=== PATIENT | male | born 1985 | race Caucasian/White ===

== ENCOUNTER 2018-06-18 07:03 | Emergency (ER) | payer OTHER, BC ==
[~2018-06-18] VITALS: Ht 165.1 cm; Wt 70.3 kg
[2018-06-18 07:14] VITALS: BP_SYST 124
[2018-06-18] MEDS ORDERED: LIDOCAINE VISCOUS 2%, 15 ML UDC ONE (07:58)
[2018-06-18] MEDS ORDERED: LIDOCAINE VISCOUS 2%, 15 ML UDC MM ONE (08:00)
[2018-06-18 08:35] VITALS: BP_SYST 125
== END 2018-06-18 08:35 | disposition home or self-care (01) ==
LOC: SED 07:03
DX: J95.830 Postprocedural hemorrhage of a respiratory system organ or structure following a respiratory system procedure (principal); Z90.49 Acquired absence of other specified parts of digestive tract; Z88.1 Allergy status to other antibiotic agents; Z88.2 Allergy status to sulfonamides; Z88.8 Allergy status to other drugs, medicaments and biological substances
CPT/HCPCS: 99283; J2001; 99282